=== PATIENT | female | born 1955 | race Caucasian/White ===

== ENCOUNTER 2017-11-29 10:07 | Observation (INO) | payer OTHER ==
[~2017-11-29] VITALS: Ht 157.5 cm; Wt 84.2 kg
[~2017-11-29 10:07] MED LIST: ROSU20TA PO; SYN0.025T PO
[2017-11-29 10:38] LABS: BASOPHILS % (AUTO) 0.5 % (0-1); EOSINOPHILS # (AUTO) 0.1 X10'3 (0-0.9); EOSINOPHILS % (AUTO) 1.1 % (0-6); HEMOGLOBIN 14.1 g/dl (12.0-16.0); LYMPHOCYTES # (AUTO) 2.6 X10'3 (1.1-4.8); LYMPHOCYTES % (AUTO) 31.7 % (21-51); MEAN CORPUSCULAR HEMOGLOBIN 31.1 PG (27.0-31.0); MEAN CORPUSCULAR HGB CONC 34.3 % (33.0-36.5); MEAN CORPUSCULAR VOLUME 90.7 FL (78-98); MEAN PLATELET VOLUME 7.6 FL (7.4-10.4); MONOCYTES # (AUTO) 0.6 X10'3 (0-0.9); MONOCYTES % (AUTO) 7.6 % (2-12); NEUTROPHILS # (AUTO) 4.9 X10'3 (1.8-7.7); NEUTROPHILS % (AUTO) 59.1 % (42-75); PLATELET COUNT 263 X10'3 (140-440); RED BLOOD COUNT 4.52 X10'6 (4.20-5.60); RED CELL DISTRIBUTION WIDTH 13.1 % (11.5-14.5); WHITE BLOOD COUNT 8.3 X10'3 (4.5-11.0)
[2017-11-29 10:48] LABS: INR 0.9 INR; PARTIAL THROMBOPLASTIN TIME 27 SECONDS (22-32); PROTHROMBIN TIME 9.6 SECONDS (9.0-12.0)
[2017-11-29 10:53] LABS: ALANINE AMINOTRANSFERASE 44 U/L (12-78); ALBUMIN 4.1 G/DL (3.4-5.0); ALBUMIN/GLOBULIN RATIO 1.1 (1.1-1.5); ALKALINE PHOSPHATASE 89 IU/L (46-116); ANION GAP 9 (8-16); ASPARTATE AMINO TRANSFERASE 27 U/L (10-37); BILIRUBIN,TOTAL 0.3 MG/DL (0.1-1.0); BLOOD UREA NITROGEN 15 MG/DL (7-18); BUN/CREATININE RATIO 18.1 (6.6-38.0); CALCIUM 9.6 MG/DL (8.5-10.1); CHLORIDE 106 MMOL/L (99-107); CREATININE 0.83 MG/DL (0.40-0.90); GLUCOSE 121 MG/DL (70-104); SODIUM 143 MMOL/L (135-145); TOTAL CARBON DIOXIDE 28.4 MMOL/L (24-32); TOTAL PROTEIN 7.8 G/DL (6.4-8.2); eGFR 70 ML/MIN
[2017-11-29] MEDS ORDERED: nitroGLYCERIN 0.4mg/hour patch TD ONE (11:10)
[2017-11-29 11:29] LABS: URINE AMPHETAMINE SCREEN NEGATIVE (Neg); URINE BARBITUATE SCREEN NEGATIVE (Neg); URINE BENZODIAZEPINES SCREEN NEGATIVE (Neg); URINE CANNABINOID SCREEN NEGATIVE (Neg); URINE COCAINE SCREEN NEGATIVE (Neg); URINE METHADONE SCREEN NEGATIVE (Neg); URINE OPIATE SCREEN NEGATIVE (Neg); URINE PHENCYCLIDINE SCREEN NEGATIVE (Neg)
[2017-11-29] MEDS ORDERED: ondansetron/PF 4mg/2ml inj IV PRN (11:35)
[2017-11-29] MEDS ORDERED: mag hydrox/Alum hydrox/simeth 30ml oral suspension PO PRN (11:35)
[2017-11-29] MEDS ORDERED: acetaminophen 325mg tablet PO PRN (11:35)
[2017-11-29] MEDS ORDERED: magnesium hydroxide 30ml (MOM) UD suspension PO PRN (11:35)
[2017-11-29] MEDS ORDERED: regadenoson 0.4mg/5ml syringe IV ONE (11:40)
[2017-11-29] MEDS ORDERED: nitroGLYCERIN 0.4mg SUBLingual tab SL PRN (11:40)
[2017-11-29] MEDS ORDERED: CAFFEINE CITRATE 60 MG/3 ML injection vial IV PRN (11:40)
[2017-11-29] MEDS ORDERED: metoprolol tartrate 1mg/ml inj IV PRN (11:40)
[2017-11-29 11:41] LABS: ETHANOL < 0.010 GM/DL (0.0-0.010)
[2017-11-29] MEDS: sodium chloride 0.45% 1,000 ML IV SCH ×2 (11:54→15:19)
[2017-11-29 14:45] VITALS: BP 101/89
[2017-11-29] MEDS ORDERED: aspirin 325mg tablet PO ONE (15:55)
[2017-11-29 20:00] VITALS: BP 132/61
[2017-11-30] VITALS (10 sets, daily range): BP systolic 122–153; BP diastolic 64–85
[2017-11-30] MEDS: sodium chloride 0.45% 1,000 ML IV SCH (01:27)
[2017-11-30 05:28] LABS: BASOPHILS % (AUTO) 0.5 % (0-1); EOSINOPHILS # (AUTO) 0.2 X10'3 (0-0.9); EOSINOPHILS % (AUTO) 2.4 % (0-6); HEMATOCRIT 38.2 % (35.0-45.0); HEMOGLOBIN 13.1 g/dl (12.0-16.0); LYMPHOCYTES # (AUTO) 2.9 X10'3 (1.1-4.8); LYMPHOCYTES % (AUTO) 30.3 % (21-51); MEAN CORPUSCULAR HEMOGLOBIN 30.9 PG (27.0-31.0); MEAN CORPUSCULAR HGB CONC 34.1 % (33.0-36.5); MEAN CORPUSCULAR VOLUME 90.3 FL (78-98); MEAN PLATELET VOLUME 8.1 FL (7.4-10.4); MONOCYTES # (AUTO) 0.7 X10'3 (0-0.9); MONOCYTES % (AUTO) 7.4 % (2-12); NEUTROPHILS # (AUTO) 5.6 X10'3 (1.8-7.7); NEUTROPHILS % (AUTO) 59.4 % (42-75); PLATELET COUNT 245 X10'3 (140-440); RED BLOOD COUNT 4.23 X10'6 (4.20-5.60); RED CELL DISTRIBUTION WIDTH 13.2 % (11.5-14.5); WHITE BLOOD COUNT 9.4 X10'3 (4.5-11.0)
[2017-11-30 05:58] LABS: ALANINE AMINOTRANSFERASE 39 U/L (12-78); ALBUMIN 3.4 G/DL (3.4-5.0); ALKALINE PHOSPHATASE 73 IU/L (46-116); ANION GAP 7 (8-16); ASPARTATE AMINO TRANSFERASE 23 U/L (10-37); BILIRUBIN,TOTAL 0.3 MG/DL (0.1-1.0); BLOOD UREA NITROGEN 11 MG/DL (7-18); BUN/CREATININE RATIO 16.7 (6.6-38.0); CHLORIDE 109 MMOL/L (99-107); CREATININE 0.66 MG/DL (0.40-0.90); GLUCOSE 105 MG/DL (70-104); POTASSIUM 4.3 MMOL/L (3.5-5.1); SODIUM 144 MMOL/L (135-145); TOTAL CARBON DIOXIDE 28.2 MMOL/L (24-32); TOTAL PROTEIN 6.9 G/DL (6.4-8.2); eGFR > 90 ML/MIN
[2017-11-30] MEDS ORDERED: BUDE10.2 (06:45)
[2017-11-30] MEDS ORDERED: AZEL6DRO5 (06:45)
[2017-11-30] MEDS ORDERED: atorvastatin 20mg tablet PO SCH (08:00)
[2017-11-30] MEDS ORDERED: levoTHYROXINE 25mcg tablet PO SCH (08:00)
[2017-11-30] MEDS ORDERED: regadenoson 0.4mg/5ml syringe IV ONE (09:43)
[2017-11-30] MEDS ORDERED: CAFFEINE CITRATE 60 MG/3 ML injection vial IV ONE (09:43)
== END 2017-11-30 13:42 | disposition home or self-care (01) ==
LOC: ER 10:08 → ED HOLD 11:35 → SUR 3N 14:41
PROVIDERS: ADMIT Internal Medicine; ATTEND Internal Medicine
DX: R07.89 Other chest pain (principal); E03.9 Hypothyroidism, unspecified; E78.5 Hyperlipidemia, unspecified; E66.01 Morbid (severe) obesity due to excess calories; I10 Essential (primary) hypertension; I20.0 Unstable angina; E78.00 Pure hypercholesterolemia, unspecified; E05.90 Thyrotoxicosis, unspecified without thyrotoxic crisis or storm; Z87.891 Personal history of nicotine dependence
CPT/HCPCS: 36415; 71045; 78451; 80053; 80305; 80320; 83735; 84443; 84484; 85025; 85610; 85730; 87070; 93005; 93017; 96360; 96361; 99285; A9500; G0378; J7030

== ENCOUNTER 2024-12-14 16:48 | Emergency (ER) | payer MEDICARE ==
[~2024-12-14] VITALS: Ht 157.5 cm; Wt 81.8 kg
[~2024-12-14 16:48] MED LIST changes: +AZEL6DRO5; +BUDE10.2; -ROSU20TA PO; +ROSU20TA2 PO
[2024-12-14 16:58] VITALS: BP 188/91; PULSE 74; RESP 16; TEMP 98.4; O2SAT 97
--- NOTE | 2024-12-14 17:03 | Physician Documentation ---
History of Present Illness ~ Chief Complaint: Laceration Stated Complaint: LAC ON RT POINTER FINGER Time Seen by MD: 17:54 OK to notify your PCP?: Yes Primary Medical Doctor: Dr Moeller Source: patient Mode of Arrival: POV Exam Limitations: no limitations HPI 69-year-old female with small laceration to right PIP joint dorsal surface after cutting onions an hour ago. Bleeding controlled with a dressing, no thinners. No decreased range of motion of finger. Tetanus Within 5 Years: No Medication Reconciliation Allergies: Coded Allergies: Penicillins (Verified Allergy, Unknown, 12/14/24) Sulfa (Sulfonamide Antibiotics) (Verified Allergy, Unknown, 12/14/24) Scheduled Levothyroxine Sodium* (Synthroid*), 25 MCG PO DAILY, (Reported) Rosuvastatin Calcium* (Crestor*), 20 MG PO DAILY, (Reported) Miscellaneous Medications Azelastine HCl (Azelastine HCl), (Reported) Budesonide/Formoterol Fumarate (Symbicort 160-4.5 Mcg Inhaler), (Reported) Past Medical History Past Medical History: High Cholesterol, Hyperthyroidism Past Surgical History: no surgical history Alcohol Use: Occasionally Drug Use: none Lives with: Family Lives In: Home Review of Systems All Other Systems at this time: Reviewed and Negative Physical Exam Vital Signs: Temperature: 98.4, Source: Temporal, Heart Rate: 74, Respiratory Rate: 16, BP: 188/91, Pulse Oximetry: 97, Weight: 81.820 Oxygen Flow Rate: 0 Physical Exam General Appearance: Alert, WD/WN. NAD. HEENT: NCAT, PERRL, EOMI. Neck: Supple, trachea midline. Lungs: Breathing unlabored Extremities: Normal inspection. No edema. Skin: Warm/dry, normal color. Right PIP joint dorsal surface very small laceration horizontal about 4 mm in length and very superficial, no bleeding or edema. Neurological: Alert and oriented x4, normal gait. Psychiatric: Affect congruent with mood. Progress Results/Orders Results/Orders Orders - BABAK FIGUEROA General Nursing Order (12/14/24 17:59) Completed Orders - BABAK FIGUEROA Tetanus/Pertuss/Diph Acell/Pf (Boostrix (12/14/24 18:00) Medications Received in ER Medications (Trade) Dose Ordered Sig/Jorge Route PRN Reason Start Time Stop Time Status Last Admin Dose Admin (Boostrix vaccine syringe) 0.5 ml ONCE ONCE IMVAC 12/14/24 18:00 12/14/24 18:01 DC 12/14/24 18:22 0.5 ML Vital Signs 12/14/24 16:58 Temp 98.4 Pulse 74 Resp 16 B/P (MAP) 188/91 Pulse Ox 97 O2 Flow Rate 0 Medical Decision Making Differential Dx:Considerations: Include: Abrasion, Avulsion, Contusion, Laceration, Fracture, Hematoma, Neurovascular injury, Retained foreign body Departure Time of Disposition: 18:17 Disposition: 01 HOME / SELF CARE / HOMELESS Impression: Primary Impression: Laceration Condition: Stable Discharge Instructions: Laceration Care, Adult, [id number] Additional Instructions: DO NOT GET WET X 72HOURS KEEP IN SPLINT UNTIL HEALED Referrals: NO PRIMARY CARE PROVIDER (PCP) Education Educated: Patient Educated regarding: diagnosis, treatment, need for follow up Additional Comment Medical Screen Exam This patient recieved a medical screening examination. After reviewing the individual's medical complaints with presenting symptoms and performing an appropriate physical examination, it was determined that no emergency medical condition is present. This individual is also not a women having contractions. Signature Scribe Signature: x Attestation: CHRIS Choudhury Dec 14, 2024 17:03 BABAK FIGUEROA Dec 14, 2024 18:17
[2024-12-14] MEDS: TETanus/Pertussis (Acell)/Diphther VAC/PF (Tdap-Adult) 0.5ml syringe IMVAC ONE (18:22)
== END 2024-12-14 18:31 | disposition home or self-care (01) ==
LOC: ER 16:48
DX: S61.210A Laceration without foreign body of right index finger without damage to nail, initial encounter (principal); E78.00 Pure hypercholesterolemia, unspecified; E05.90 Thyrotoxicosis, unspecified without thyrotoxic crisis or storm; Z88.0 Allergy status to penicillin; Z88.2 Allergy status to sulfonamides; Z79.899 Other long term (current) drug therapy; Z72.89 Other problems related to lifestyle; W26.0XXA Contact with knife, initial encounter; Y93.89 Activity, other specified; Y92.89 Other specified places as the place of occurrence of the external cause; Y99.8 Other external cause status
CPT/HCPCS: 29130; 90715; 99283; G0008; J7030; 90471

== ENCOUNTER 2025-06-12 00:08 | Inpatient (IN) | payer MEDICARE ==
[~2025-06-12] VITALS: Ht 157.5 cm; Wt 81.8 kg
--- NOTE | 2025-06-12 00:21 | ELECTROCARDIOGRAPH REPORT ---
[facility] Test Date: 2025-06-12 Test Time: 00:16:41 Pat Name: KIMANI GALLOWAY Department: EMERGENCY ROOM Room: ORTHO 4009 Gender: F Cafeteria Attendant: LUÍS : 1955 Requested By: J LUIS MEHTA Order Number: [id number] Reading MD: Dr. ELVIA Stewart Measurements Intervals [place] Rate: 79 P: 78 OR: 177 QRS: 63 QRSD: 79 T: 38 QT: 382 QTc: 438 Interpretive Statements Sinus rhythm Anteroseptal infarct, old Electronically Signed On 06-13-2025 16:52:[address] ELVIA Stewart Please click the below link to view image of tracing.
--- NOTE | 2025-06-12 01:16 | RADIOLOGY REPORT ---
EXAM: DI CHEST,SINGLE VIEW TECHNIQUE: Single frontal chest radiograph CLINICAL HISTORY: CP COMPARISON: None FINDINGS/IMPRESSION: Mild prominence of the interstitial markings. The cardiomediastinal silhouette is unremarkable. No pleural effusion or pneumothorax. No acute osseous abnormality.
[2025-06-12 01:23] LABS: CREATININE 0.85 MG/DL (0.40-0.90); PRO BRAIN NATRIURETIC PEPTIDE 47 PG/ML (0-125); TOTAL CARBON DIOXIDE 28.0 MMOL/L (24-32); eGFR 66 ML/MIN
--- NOTE | 2025-06-12 01:23 | Physician Documentation ---
History of Present Illness ~ Chief Complaint: Hypertension Stated Complaint: CHEST PAIN Time Seen by MD: 01:03 Primary Medical Doctor: Dr Moeller [facility] Patient presents to the emergency room for evaluation of chest pain and blood pressure. Patient has been working with her doctor regarding her blood pressures for some time now. A proximally a week ago patient has started small dose of metoprolol and she states she has not really felt in his affect. Regarding her recent blood pressures she did bring a log with her which shows that her blood pressures typically range between 130 and 150 however today there has been over 200. She also endorses increasing left-sided chest pain that radiates into her left jaw over the past few weeks. She does not smoke but does have history of blood pressure cholesterol diabetes and family history. Denies one-sided leg pain Medication Reconciliation Allergies: Coded Allergies: Penicillins (Verified Allergy, Unknown, 06/12/25) Sulfa (Sulfonamide Antibiotics) (Verified Allergy, Unknown, 06/12/25) metformin (Verified Allergy, Unknown, 06/12/25) Scheduled Levothyroxine Sodium (Synthroid), 1 TAB PO DAILY, (Reported) Levothyroxine Sodium* (Synthroid*), 25 MCG PO DAILY, (Reported) Losartan/Hydrochlorothiazide (Losartan-Hctz 100-12.5 Mg Tab), 1 TAB PO DAILY, (Reported) Metoprolol Succinate (Metoprolol Succinate), 1 TAB PO DAILY, (Reported) Pioglitazone Hcl (Pioglitazone Hcl), 1 TAB PO DAILY, (Reported) Rosuvastatin Calcium* (Crestor*), 20 MG PO DAILY, (Reported) Scheduled PRN Albuterol Sulfate (Ventolin Hfa), 2 PUFF PO Q6H PRN for SOB or wheezing, (Reported) Miscellaneous Medications Azelastine HCl (Azelastine HCl), (Reported) Budesonide/Formoterol Fumarate (Symbicort 160-4.5 Mcg Inhaler), (Reported) Past Medical History Past Medical History: High Cholesterol, Hyperthyroidism Past Surgical History: no surgical history Alcohol Use: Occasionally Drug Use: none Lives with: Family Lives In: Home Review of Systems ROS All review of systems negative except as per HPI Physical Exam Vital Signs: Temperature: 97.6, Source: Temporal, Heart Rate: 84, Respiratory Rate: 15, BP: 214/105, Pulse Oximetry: 99 Physical Exam General: Patient is awake, alert, oriented x4 in no acute distress Head: Normocephalic and atraumatic. Eyes: Conjunctival normal. EOMI. PERRL. ENT: Mucous membranes moist. Neck: Supple, trachea is midline. Chest: Clear to auscultation bilaterally without rales, rhonchi, or wheezes. There is no accessory muscle use or retractions. Cardiac: RRR without murmurs, gallops, or rubs. Abd: Soft, nondistended, nontender, with normoactive bowel sounds. No guarding, rebound, or rigidity. Progress Results/Orders Results/Orders Orders - DOM MEHTA MD Chest,Single View (06/12/25 00:54) Monitor (06/12/25 00:19) Saline Lock (06/12/25 00:19) Oxygen (06/12/25 00:19) Cbc/Diff (06/12/25 00:19) Hs Troponin I W Calculations (06/12/25 02:19) Hs Troponin I W Calculations (06/12/25 03:19) Page Hospitalist (06/12/25 01:26) Fill Out Med Reconciliation (06/12/25 01:26) Completed Orders - DOM MEHTA MD Chest,Single View (06/12/25 00:54) BMP (06/12/25 00:19) PBNP (06/12/25 00:19) Electrocardiogram (06/12/25 00:19) Hs Troponin I W Calculations (06/12/25 00:19) Aspirin 325mg Tablet (Aspirin 325mg Tabl (06/12/25:25) Acetaminophen 325mg Tablet (Tylenol Tabl (06/12/25:25) Ondansetron Disint. Tablet (Zofran Odt T (06/12/25:25) Famotidine/Pf Iv Inj (Pepcid Iv Inj) (06/12/25:25) Hydralazine Inj. (Apresoline Inj.) (06/12/25:25) Vital Signs 06/12/25 06/12/25 06/12/25 00:17 01:29 01:30 Temp 97.6 Pulse 84 82 Resp 15 16 16 B/P (MAP) 214/105 181/88 (119) Pulse Ox 99 99 Laboratory Tests Test 06/12/25 00:49 CBC Comment Sodium Level 137 Potassium Level 3.7 Chloride Level 100 Carbon Dioxide Level 28.0 Anion Gap 9 Blood Urea Nitrogen 18 Creatinine 0.85 Estimated GFR/1.73 m2 66 BUN/Creatinine Ratio 21.2 H Glucose Level 172 H Calcium Level 9.1 Troponin I High Sensitivity 6 Pro-B-Type Natriuretic Peptide 47 Albumin 4.2 Chemistry Comments EKG/XRAY/CT/US/VASC/MRI EKG : Additional Comment EKG interpreted by myself shows time of 0016, rate 79, sinus rhythm, normal axis, no ST changes Chest X-Ray : Additional Comments Exam: CHEST,SINGLE VIEW EXAM: DI CHEST,SINGLE VIEW TECHNIQUE: Single frontal chest radiograph CLINICAL HISTORY: CP COMPARISON: None FINDINGS/IMPRESSION: Mild prominence of the interstitial markings. The cardiomediastinal silhouette is unremarkable. No pleural effusion or pneumothorax. No acute osseous abnormality. Medical Decision Making Additional information obtaine: old records Findings Patient presents to the emergency room with blood pressure and chest pain. Differentials include but are not limited to hypertensive emergency, ACS, angina, unstable angina, musculoskeletal pain, pulmonary embolism, aortic pathology therefore emergent labs and imaging indicated. No back pain reported with equal radial pulses and he had not feel patient is suffering from acute aortic pathology. Patient's chest pain has been intermittent left-sided radiating into her neck which is of concern. Patient was history of blood pressure cholesterol diabetes that has well as family history in his considered high risk and we will admit for further investigation of her chest pain. Patient's blood pressure improving spontaneously. We will give a small amount of hydralazine to decrease her blood pressure and I feel this will lift some of her anxiety in her blood pressure will improve greatly. She has brought a blood pressure log with her that shows her blood pressures ranging from the 120s to 150s as early as yesterday. Differential Dx:Considerations: Include CHF, Include HTN, essential, Include HTN, accelerated, Include HTN, malignant, Include HTN, encephalopathy, Include medical noncompliance, Include medication withdrawal, Include pulmonary edema, Include renal failure, Include -induced, Include other Departure Admitted to Inpatient Unit: yes, to hospitalist Impression: Primary Impression: Uncontrolled hypertension Additional Impression: Chest pain Condition: Guarded Referrals: NO PRIMARY CARE PROVIDER (PCP) Signature Scribe Signature: No scribe Attestation: The note accurately reflects work and decisions made by me.Dom Mehta MD 06/12/25 01:46 DOM MEHTA MD Jun 12, 2025 01:23
[2025-06-12] MEDS ORDERED: METO-395 PO (01:29)
[2025-06-12] MEDS ORDERED: LEVO50TA PO (01:29)
[2025-06-12] MEDS ORDERED: PIOG30TA71 PO (01:29)
[2025-06-12] MEDS ORDERED: LOSA1TAB41 PO (01:29)
[2025-06-12] MEDS ORDERED: ALBU18HF2 PO (01:29)
[2025-06-12] MEDS: ondansetron 4mg rapidly disintigrating tab PO ONE (01:44)
[2025-06-12 01:51] LABS: MEAN PLATELET VOLUME 7.6 FL (7.4-10.4); RED CELL DISTRIBUTION WIDTH 12.5 % (11.5-14.5)
[2025-06-12] MEDS ORDERED: ondansetron/PF 4mg/2ml inj IV PRN (02:05)
[2025-06-12] MEDS ORDERED: mag hydrox/Alum hydrox/simeth 30ml oral suspension PO PRN (02:05)
[2025-06-12] MEDS ORDERED: magnesium Cl slow-release 64mg tablet PO PRN (02:05)
[2025-06-12] MEDS ORDERED: potassium Cl 40MEQ/1/2NS 520ml 520 ML IV PRN (02:05)
[2025-06-12] MEDS ORDERED: potassium Cl 20 mEq SR tablet PO PRN ×2 (02:05)
[2025-06-12] MEDS ORDERED: magnesium sulf-water 4G/100mL 100 ML IV PRN (02:05)
[2025-06-12] MEDS ORDERED: magnesium hydroxide 30ml (MOM) UD suspension PO PRN (02:05)
[2025-06-12] MEDS ORDERED: magnesium sulf-water 2g/50mL 50 ML IV PRN (02:05)
[2025-06-12] MEDS: famotidine/PF 10 mg/ml inj IV ONE (02:12)
[2025-06-12] MEDS: hydrALAZINE 20mg/ml inj. IV ONE (02:12)
[2025-06-12 02:36] LABS: APTT 28 SECONDS (22-32); INR 0.9 INR
[2025-06-12 02:55] LABS: URINE AMPHETAMINE SCREEN NEGATIVE (Neg); URINE BARBITUATE SCREEN NEGATIVE (Neg); URINE BENZODIAZEPINES SCREEN NEGATIVE (Neg); URINE CANNABINOID SCREEN NEGATIVE (Neg); URINE COCAINE SCREEN NEGATIVE (Neg); URINE METHADONE SCREEN NEGATIVE (Neg); URINE OPIATE SCREEN NEGATIVE (Neg); URINE PHENCYCLIDINE SCREEN NEGATIVE (Neg)
[2025-06-12 03:03] LABS: PHOSPHORUS 4.1 MG/DL (2.3-4.5)
--- NOTE | 2025-06-12 03:03 | HISTORY AND PHYSICAL-Residence ---
History & Physical Providers to CC Resident Creating Document: ZEHRA ARREDONDO ROMULO, RES ~ History of Present Illness Primary Medical Doctor: Dr. Nate Asencio, [facility] Reason for Admit\Complaint: Chest pain History of Present Illness A 70 years old female with history of hypertension, diabetes, hyperlipidemia, hypothyroidism came to the ED with chief complaint of chest pain. Patient states that she was doing well, had a dinner and went to bed for sleep, after sometime, she has having chest pain all over the chest region which is dull aching, with intensity of 7/10, radiating to left side of the jaw, upper abdomen and to the lower back region. She did not take any medication at home and she was brought to the hospital by her . Patient has history of occasional pain in upper abdomen and she underwent ultrasound abdomen on 06/10/25 in view of suspicion of gallbladder and she did not get the report yet. Patient has similar kind of episode in the past x 7-8 yrs ago underwent stress test which was negative. Patient denies any difficulty in breathing, palpitations, orthopnea, PND, swelling of legs, lightheadedness, syncope, falls, nausea, vomiting, diarrhea, constipation, fever and chills. Allergies: Coded Allergies: Penicillins (Verified Allergy, Unknown, 06/12/25) Sulfa (Sulfonamide Antibiotics) (Verified Allergy, Unknown, 06/12/25) metformin (Verified Allergy, Unknown, 06/12/25) Home Medications Home Medications Active Reported Pioglitazone Hcl 30 Mg Tablet 1 Tab PO DAILY Synthroid (Levothyroxine Sodium) 50 Mcg Tablet 1 Tab PO DAILY Ventolin Hfa (Albuterol Sulfate) 90 Mcg Hfa.aer.ad 2 Puff PO Q6H PRN Losartan-Hctz 100-12.5 Mg Tab (Losartan/Hydrochlorothiazide) 100 Mg-12.5 Mg Tablet 1 Tab PO DAILY Metoprolol Succinate 25 Mg Tab.sr.24h 1 Tab PO DAILY Symbicort 160-4.5 Mcg Inhaler (Budesonide/Formoterol Fumarate) 10.2 Gm Hfa.aer.ad Azelastine HCl 6 Ml Drops Crestor* (Rosuvastatin Calcium) 20 Mg Tablet 20 Mg PO DAILY Synthroid* (Levothyroxine Sodium) 25 Mcg Tablet 25 Mcg PO DAILY Past Medical History Past Medical History Hypertension Type 2 diabetes mellitus Hypothyroidism Hyperlipidemia Past Surgical History Surgical History Comment Hysterectomy Carpal tunnel release on both sides Family history: History of cardiovascular disease in the family Past Social History Social History Comment Alcohol: She drinks occasionally like once in EMR Smoking: She quit smoking 10 years ago, currently do sometimes nicotine lozenges . previously she used to smoked about 1 pack of cigarettes per day if teenage. Drugs: Denies any recreational drug use Independent of activities of daily living Lives with at home Retired Smoking: Non-Smoker Alcohol Use: Occasionally Drug Use: None Lives with: Family Lives In: Home ROS ROS Constitutional: No fever, chills, dizziness, weight gain or loss, night sweats Eyes: No pain, erythema, discharge, blurring of vision ENT: No sore throat, epistaxis, tinnitus Cardiovascular: Reports chest pain, no palpitations, syncope, lower extremity edema, paroxysmal nocturnal dyspnea Respiratory: No Shortness of breath and cough, No hemoptysis. Gastrointestinal: Reports mild Abdominal pain, no vomiting,nausea and melena. Normal appetite. No constipation,diarrhea, hematemesis, Musculoskeletal: No swelling or edema of extremities. Integumentary: No change in skin, hair, nails. No swelling, bruising, abrasions Neurologic: No weakness,No headache, neck pain, numbness or tingling of the extremities, Psychiatric: No delusions, depression, loss of interest in normal activity or change in sleep pattern, hallucinations, suicidal ideations Endocrine: No fatigue, no weakness. polydipsia, polyuria, change in appetite, heat or cold intolerance, sweating, dry skin Hematological: No bleeding, petechiae, bruising Allergies: No asthma or urticaria Exam Vitals: Vital Signs Date Time Temp Pulse Resp B/P (MAP) Pulse Ox O2 Delivery O2 Flow Rate FiO2 06/12/25 02:20 84 18 105/84 (91) 98 0 06/12/25 00:17 97.6 General: Awake , alert and oriented to time,place, person, not in distress HEENT: Atraumatic, normocephalic, PERRLA, EOMI, anicteric sclera ; pink conjunctiva, moist mucos membranes Neck: Trachea midline. Supple, normal range of motion, no JVD, no lymphadenopathy Chest and Respiratory: Equal breath sounds bilaterally, no tachypnea, wheezing, ronchi,rubs .Chest wall is symmetric and without deformity. Cardiac: S1, S2 heard,Regular rate and rhythm, grade 2 +/6+ systolic ejection murmur over RUSB ,no gallops, no rubs. Abdomen: Soft, No tenderness, No guarding or rigidity, Barnhart's sign negative. normal bowel sounds x4 quadrant, no hepatosplenomegaly MSK: Range of motion of all extremities are normal. There is no joint pain or joint swelling or joint erythema. There is no muscle pain or tenderness or swelling. Extremities: warm, well-perfused, No cyanosis, clubbing, 2+ pulses felt Neurological: Mental status exam: alert and consciousness, orientation, memory, speech - Cranial nerve test: Cranial nerves II-XII intact. - Motor system: Normal Nutrition, normal tone, Power 5/5, no involuntary movements - Sensory system: Intact - Reflex testing: Biceps, triceps and knee reflexes 2+ - Cerebellar: Normal Skin: Warm and dry Psychiatry: Affect and mood are normal Diagnostic Data Last Recorded Lab Results: 06/12/25 0537 06/12/25 0049 Diagnostic Data: Laboratory Tests Test 06/12/25 00:49 Prothrombin Time 9.7 SECONDS (9.0-12.0) INR International Normalized Ratio 0.9 INR Activated Partial Thromboplast Time 28 SECONDS (22-32) Coagulation Comments Advance Care Planning Advanced Care plannin - 30 Minutes Additional Plan Rule out ACS likely NSTEMI 2/2 Hypertensive urgency -Blood pressure on admission is 214/105 , patient received 1 dose of IV hydralazine 10 mg and IV famotidine 20 mg, developed itching and mild rash, IV Benadryl was given. -EKG shows normal sinus rhythm with heart rate of 84 -Serial troponins are 6-38-71 -Patient states that she was diagnosed with hypertension x 1 year ago and she was on losartan which does not improve her blood pressure and the PCP changed it to metoprolol succinate 25 mg p.o. daily 2 weeks ago. -blood pressures at home from last 2 weeks are in between 140/4 to 168/95 -follow up on echocardiogram -pain management with morphine and SL nitroglycerin p.r.n. -continue home medication metoprolol succinate 25 mg p.o. daily(titrate as needed) -aspirin 325 mg once dose was given and started on aspirin 81 mg once daily, atorvastatin 80 mg once daily -started on heparin drip as per protocol -Follow up troponin trend, consult cardiology in the morning Type 2 diabetes mellitus, NIDDM Patient states that she was diagnosed with DM x 1 year ago and she was on Metformin which does not improve her blood suagrs and the PCP changed it to pioglitazone 30 mg daily 2 weeks ago, patient did not start on pioglitazone yet. Blood glucose level is 172 HbA1c level is 7.4 Started on Lantus 10 units HS daily Hyperglycemia/hypoglycemia protocol Suspicion of cholelithiasis AST, ALT are normal, mildly elevated ALP of 119 Lipase is normal Follow up on ultrasound abdomen Hyperlipidemia Follow up on lipid panel Continue home medication rosuvastatin 20 mg p.o. daily Hypothyroidism Follow up on TSH Continue home medication levothyroxine 50 mcg p.o. daily Code status: Full code DVT prophylaxis : Heparin GI prophylaxis: IV Protonix Nutrition: Heart healthy diet Physical therapy: ordered Line/tube: PIV Analgesia/sedation: Morphine Disposition: Continue telemetry monitoring, management of hypertensive urgency and NSTEMI and -Follow up troponin trend, consult cardiology in the morning Resident attestation The above note has been reviewed and supervised by a senior resident PGY2/PGY3 Patient was seen, examined and discussed with the attending physician Jian Arredondo MD Internal Medicine Resident, PGY 1 Addendum I personally reviewed the chart, labs and imaging and reviewed the patient with the team. I agree with the assessment and plan as documented by the resident. Patient was seen through remote audio-visual assessment through HIPAA compliance setup. Date of Service: Jun 12, 2025 Billing Provider: BETHEL BUCKLEY MD, SUNIL KUMAR, RES Jun 12, 2025 03:03 BETHEL BUCKLEY MD Jun 12, 2025 06:38
[2025-06-12] MEDS ORDERED: dextrose 50%-water 50ml dispensing syringe IV PRN ×2 (03:40)
[2025-06-12] MEDS ORDERED: DEXTROSE 15 GM of carb/4 tabs (each vial/BOTTLE has 4 tablets) PO PRN ×2 (03:40)
[2025-06-12] MEDS ORDERED: glucagon, human recombinant 1mg kit SUBCUT PRN (03:40)
[2025-06-12] MEDS ORDERED: heparin 10,000 units/1 ML INJ IV PRN (04:45)
[2025-06-12] MEDS: heparin 25,000 UNIT/250ml bag 250 ML IV PRN (05:11)
[2025-06-12] MEDS: heparin 10,000 units/1 ML INJ IV ONE (05:15)
[2025-06-12] MEDS: aspirin 325mg tablet, delayed-release (Ecotrin) PO ONE (05:18)
[2025-06-12] MEDS: MESSAGE TO NURSING IV ONE ×3 (05:20→22:23)
[2025-06-12 05:55] VITALS: BP 98/47; PULSE 85; RESP 17; TEMP 98.4; O2SAT 96
[2025-06-12 06:12] VITALS: BP 104/47; PULSE 79; RESP 14; TEMP 97.4; O2SAT 95
[2025-06-12 06:12] LABS: MEAN PLATELET VOLUME 7.7 FL (7.4-10.4); RED CELL DISTRIBUTION WIDTH 12.4 % (11.5-14.5)
[2025-06-12] MEDS: K and/or MAG REPLACEMENT MC SCH (07:11)
[2025-06-12] MEDS: INSULIN LISPRO 100 UNIT/ML INSULN.PEN MULTI-DOSE SQ SCH (07:25)
[2025-06-12] MEDS: levoTHYROXINE 25mcg tablet PO SCH (07:30)
[2025-06-12] MEDS: docusate sod 100mg capsule PO SCH (07:30)
[2025-06-12] MEDS: nicotine 14mg patch - 24hr TD SCH (07:33)
[2025-06-12] MEDS ORDERED: heparin, porcine 5000 units/ml vial SQ SCH (08:00)
--- NOTE | 2025-06-12 08:29 | RADIOLOGY REPORT ---
INDICATION: abd pain, gall stones, kidney stones TECHNIQUE: Multiple real-time sonographic images of the abdomen and urinary bladder were obtained. COMPARISON: None FINDINGS: The liver is increased in echogenicity. The liver measures 17.2 cm. No intrahepatic biliary ductal dilatation is noted. Hepatopetal flow in the main portal vein. The gallbladder wall measures 0.2 cm and is unremarkable. No gallstones or sludge is seen. The common duct measures 0.2 cm and is unremarkable. No pericholecystic fluid is noted. Negative sonographic banks's sign. The right kidney measures 10.9 cm. There is right hydronephrosis. The left kidney measures 12.2 cm. No hydronephrosis. The spleen measures 9.3 cm, within normal limits. The echogenicity is within normal limits. The pancreas is not well visualized due to obscuration from bowel gas. The visualized portions of the IVC and aorta are grossly unremarkable. No ascites. No pleural effusion. Prevoid urinary bladder volume measures 89.6 cc. Postvoid residual bladder is 0. No Bladder wall thickening. IMPRESSION: 1. Right hydronephrosis. No obstructing stone. 2. Hepatic steatosis. 3. No gallstones or acute cholecystitis.
[2025-06-12 10:00] VITALS: BP 120/50; PULSE 77; RESP 17; TEMP 97.7; O2SAT 95
[2025-06-12] MEDS: metoprolol succinate 25mg (24-HOUR) SR. Tablet PO SCH (10:54)
[2025-06-12] MEDS ORDERED: albuterol 2.5 MG/3 ML nebule NEB PRN (15:40)
[2025-06-12] MEDS ORDERED: aminophylline 250mg/10ml inj. IV PRN (16:40)
[2025-06-12] MEDS ORDERED: metoprolol tartrate 1mg/ml inj IV PRN (16:40)
--- NOTE | 2025-06-12 16:45 | CONSULTATION REPORT ---
History of Present Illness Providers to CC CC: ZAYRA ZAPATA MD ~ Reason for Admit\Admit Dx: Cardiology consultation Refering MD: Dr. Nate Asencio, [facility] History of Present Illness Patient with history of hypertension, hyperlipidemia, hypothyroidism, diabetes mellitus presented secondary to chest pain and elevated blood pressure. Systolic blood pressure initially over 200. Chest pain was across the chest and into her left jaw. Described as pressure and sharp. Had difficulty breathing and pain with inspiration. No nausea, vomiting. No palpitations. No diaphoresis. States that she continues to have chest pressure but it has significantly improved. Her blood pressure has been elevated. She is attempting to adjust her blood pressure medications with her primary care provider. She was initially placed on losartan. She stated she had ringing in her ears and confusion. This medication was then increased and she was also started on hydrochlorothiazide. States her confusion worsened. She was therefore taken off of these medications and she was started on metoprolol. Unfortunately, her blood pressure remains uncontrolled. Allergies: Coded Allergies: hydralazine (Verified Allergy, Intermediate, 06/12/25) face flush and itchy around her lips, bloatchiness around her face Penicillins (Verified Allergy, Unknown, 06/12/25) Sulfa (Sulfonamide Antibiotics) (Verified Allergy, Unknown, 06/12/25) metformin (Verified Allergy, Unknown, 06/12/25) losartan (Verified Adverse Reaction, Intermediate, 06/12/25) pt states, burning and itching with losartan and hydroicholidized Home Medications Home Medications Active Reported Pioglitazone Hcl 30 Mg Tablet 1 Tab PO DAILY Synthroid (Levothyroxine Sodium) 50 Mcg Tablet 1 Tab PO DAILY Ventolin Hfa (Albuterol Sulfate) 90 Mcg Hfa.aer.ad 2 Puff PO Q6H PRN Metoprolol Succinate 25 Mg Tab.sr.24h 1 Tab PO DAILY Symbicort 160-4.5 Mcg Inhaler (Budesonide/Formoterol Fumarate) 10.2 Gm Hfa.aer.ad Azelastine HCl 6 Ml Drops Crestor* (Rosuvastatin Calcium) 20 Mg Tablet 20 Mg PO DAILY Synthroid* (Levothyroxine Sodium) 25 Mcg Tablet 25 Mcg PO DAILY Past Medical History Medical History Comment Hypertension Hyperlipidemia Hypothyroidism Diabetes mellitus with hemoglobin A1c 7.4 Past Surgical History Surgical History Comment Bilateral carpal tunnel Hysterectomy Past Social History Social History Comment History of smoking. Continues to use nicotine products intermittently. Physical Exam Last Vital Signs Recorded: RN Vital Signs have been reviewed: Yes, Temperature: 97.7, Source: Oral, Heart Rate: 77, Respiratory Rate: 17, BP: 120/50, Pulse Oximetry: 95, Weight: 81.820 Physical Exam General: Awake, alert, oriented. No apparent distress Neck: Supple. Normal range of motion. No JVD Respiratory: Lungs are clear to auscultation bilaterally. No respiratory distress. Chest: Normal shape and size. No accessory muscle use. Cardiovascular: Regular rate and rhythm. S1-S2. No murmur, gallop, rub. Extremities: No lower extremity edema, cyanosis or clubbing. Neurologic: Alert and oriented x4. Nonfocal Psychiatric: Normal mood and affect. Skin: Normal color. Warm and dry. Review of Systems ROS Review of systems negative except documented in HPI. Results EKG EKG Sinus rhythm with nonspecific ST-T changes Echocardiogram Echocardiogram Preserved LVEF. No wall motion abnormalities by preliminary echocardiogram. Diagram Lab Result Diagram: 06/12/25 0537 06/12/25 0049 Assessment/Plan Additional Plan Patient presented secondary to chest pain and elevated blood pressure. The following is her problem list: Hypertensive urgency Blood pressure under much better control. --she was treated with IV hydralazine this morning. Blood pressure is currently controlled. Would consider addition of amlodipine. Chest pain Very minimally elevated troponins. Likely demand ischemia secondary to hypertensive urgency as noted above. However, patient continues to have chest pressure. Therefore I recommend a stress test. Diabetes mellitus with hemoglobin A1c 7.4 --management per hospitalist Case discussed with Dr. Killian Zapata who is in agreement with this plan. Supervising MD Supervising Physician: JOSSELINE Carrillo NP Jun 12, 2025 16:45
[2025-06-12] MEDS: CefTRIAXone 2gm/D5W 50ml BAG 50 ML IV ONE (16:50)
--- NOTE | 2025-06-12 17:04 | CARDIOLOGY REPORT ---
APPROVED REPORT EXAM: Comprehensive 2D, Doppler, and color-flow Echocardiogram. Patient Location: [address] Blood Pressure: 120/50 mmHg Heart Rate: 67 bpm Rhythm: SINUS Indications HYPERTENSION CHEST PAIN TROPONIN 38, 71, 97, 78, 71 Telehealth Nurse: none Previous echo: none 2D Dimensions RVDd 3.1 cm LA Diam 5.4 cm LVOT Diameter 1.94 (1.8-2.4cm) FS (%) 37.3 % SV 38.6 ml CO 4.9 L/min M-Mode Dimensions Left Atrium(MM) 3.30 (2.5-4.0cm) IVSd 1.03 (0.7-1.1cm) LVDd 4.45 (4.0-5.6cm) Aortic Root 2.27 (2.2-3.7cm) PWd 0.78 (0.7-1.1cm) Aortic Cusp Exc 1.48 (1.5-2.0cm) IVSs 1.44 cm LVDs 2.47 (2.0-3.8cm) FS (%) 44 % PWs 1.69 cm ESV(Teich) 21.7 ml LVEF(%) 70 (>50%) Biplane 2D LA Volumes LA ESV Index 19.44 mL/m2 Aortic Valve AoV Peak Arthur. 212.4 cm/s AoV VTI 40.1 cm AO Peak GR. 18.0 mmHg AO Mean GR. 10 mmHg LVOT VTI 30.54 cm LVOT Peak Arthur. 144.0 cm/s SUMAN(VTI)/BSA 2.26 cm2/m2 SUMAN (VTI) 2.26 cm2 AV DI 0.76 % Mitral Valve MV E Velocity 98.1 cm/s MV Peak Gr. 5 mmHg MV DECEL TIME 204 ms MV A Velocity 82.6 cm/s MV PHT 64 ms E/A Ratio 1.2 MVA (PHT) 3.44 cm2 MV VMax 117.2 cm/s TDI Medial E' P. V 15.32 cm/s E/Medial E' 6.4 Pulmonary Vein S1 Velocity 52.0 cm/s D2 Velocity 42.2 cm/s PVa Velocity 34.6 cm/s PVa Duration 116 msec LEFT VENTRICLE Normal LV size and wall thickness. Overall systolic function is normal. Overall LVEF is 65-70%. RIGHT VENTRICLE RV is normal size and function. ATRIA LA size is normal. RA size is normal. AORTIC VALVE Trileaflet AV appears mildly sclerotic without stenosis or insufficiency by color and spectral flow Doppler. MITRAL VALVE Mild MV annular calcification without stenosis. Mild regurgitation by color and spectral flow Doppler. TRICUSPID VALVE TV appears structurally normal with trace regurgitation by color and spectral flow Doppler. PULMONIC VALVE Normal PV without stenosis, physiologic insufficiency by color and spectral flow Doppler. GREAT VESSELS Aortic root is normal in size. PERICARDIUM Normal pericardium. No effusion. Other Information Study Quality: Adequate Conclusion Overall LVEF is 65-70%. Normal LV size and wall thickness. Overall systolic function is normal. RV is normal size and function. Trileaflet AV appears mildly sclerotic without stenosis or insufficiency by color and spectral flow Doppler. Mild MV annular calcification without stenosis. Mild regurgitation by color and spectral flow Doppler. TV appears structurally normal with trace regurgitation by color and spectral flow Doppler. Normal PV without stenosis, physiologic insufficiency by color and spectral flow Doppler. Normal pericardium. No effusion.
[2025-06-12 18:00] VITALS: BP 120/69; PULSE 66; RESP 20; TEMP 97.7; O2SAT 94
--- NOTE | 2025-06-12 18:36 | PROGRESS NOTE ---
Daily Progress Note Providers to CC ~ Antibiotic Timeout Antibiotic Ordered?: Yes Subjective Patient was seen in her room in presence of her . Patient's blood pressure was quite high but when I evaluated the patient it is borderline blood pressure we will hold any antihypertensive at this point of time and re-evaluate patient in a.m.. Patient is not on losartan/hydrochlorothiazide and taking metoprolol for blood pressure control as per her PCP recommendation. As multiple drug allergies. Cardiology team evaluated the patient and recommended stress test. Objective Vital Signs Date Time Temp Pulse Resp B/P (MAP) Pulse Ox O2 Delivery O2 Flow Rate FiO2 06/12/25 16:12 87 06/12/25 10:00 97.7 17 120/50 (73) 95 Room Air 06/12/25 07:30 0.0 Result Diagram: 06/12/25 0537 06/12/25 0049 General-patient not in any acute distress, alert awake oriented, obese, age appropriate HEENT-atraumatic normocephalic, neck supple without elevated JVD, no thyromegaly or carotid bruit. No lymphadenopathy bilaterally. Eyes-no icterus or pallor seen in eyes Chest-clear to auscultation bilaterally, breathing nonlabored no tachypnea, no wheezing, no crepitation, no crackles. Heart-S1-S2 normal, regular heart rate no murmur Abdomen bowel sounds positive on auscultation, soft nondistended nontender no guarding, no rigidity Skin no active skin rash Neurology-grossly intact, nonfocal alert awake oriented Extremity- no pedal edema able to move all 4 extremities Psychiatry - patient is not confused or agitated cooperated during physical examination Coagulation Studies Laboratory Tests Test 06/12/25 00:49 06/12/25 11:43 Prothrombin Time 9.7 SECONDS (9.0-12.0) INR International Normalized Ratio 0.9 INR Activated Partial Thromboplast Time 28 SECONDS (22-32) APTT (Heparin Protocol) 56 SECONDS (45-60) Coagulation Comments Problem\Assessment\Plan Elevated troponin likely type 2 HI Hypertensive urgency -Blood pressure on admission is 214/105 , patient received 1 dose of IV hydralazine 10 mg and IV famotidine 20 mg, developed itching and mild rash, IV Benadryl was given. -EKG shows normal sinus rhythm with heart rate of 84 -Serial troponins are 6-38-71 -Patient states that she was diagnosed with hypertension x 1 year ago and she was on losartan which does not improve her blood pressure and the PCP changed it to metoprolol succinate 25 mg p.o. daily 2 weeks ago. -blood pressures at home from last 2 weeks are in between 140/4 to 168/95 -echocardiogram today left ventricular ejection fraction 65-70% overall systolic function is normal. Normal left ventricular size and wall thickness. -pain management with morphine and SL nitroglycerin p.r.n. -continue home medication metoprolol succinate 25 mg p.o. daily(titrate as needed) -aspirin 325 mg once dose was given and started on aspirin 81 mg once daily, atorvastatin 80 mg once daily - on heparin drip as per protocol Cardiology consultation done by Cardiology team for Dr. Long Zapata recommended stress testing. We will follow results of stress testing in AM Type 2 diabetes mellitus, NIDDM Patient stated that she was diagnosed with DM x 1 year ago and she was on Metformin which does not improve her blood suagrs and the PCP changed it to pioglitazone 30 mg daily 2 weeks ago, patient did not start on pioglitazone yet. Blood glucose level is 172 HbA1c level is 7.4 Hyperglycemia/hypoglycemia protocol Suspicion of cholelithiasis AST, ALT are normal, mildly elevated ALP of 119 Lipase is normal Follow up on ultrasound abdomen WBC 14.9 one dose of ceftriaxone ordered and we will follow sed rate and procalcitonin levels Hyperlipidemia Follow up on lipid panel Continue home medication rosuvastatin 20 mg p.o. daily Hypothyroidism Follow up on TSH Continue home medication levothyroxine 50 mcg p.o. daily Code status: Full code DVT prophylaxis : Heparin GI prophylaxis: IV Protonix Nutrition: Heart healthy diet Physical therapy: ordered Line/tube: PIV Analgesia/sedation: Morphine Patient's current condition is guarded we will continue to follow patient in AM . Date of Service: Jun 12, 2025 Billing Provider: GASTON AQUINO MD Common Visit Codes: [id number] INP/OBS CARE(HIGH) GASTON AQUINO MD Jun 12, 2025 18:36
[2025-06-12 20:00] VITALS: RESP 20; O2SAT 94
[2025-06-12] MEDS ORDERED: insulin glargine (Lantus) pen - multi-dose SQ SCH (21:00)
[2025-06-12 22:00] VITALS: BP 146/74; PULSE 76; RESP 16; TEMP 98.1; O2SAT 94
[2025-06-13] VITALS (12 sets, daily range): BP systolic 97–147; BP diastolic 49–85; PULSE 60–94; RESP 14–20; TEMP 97.6–97.8; O2SAT 95–99
[2025-06-13 01:38] LABS: MEAN PLATELET VOLUME 7.1 FL (7.4-10.4); RED CELL DISTRIBUTION WIDTH 12.6 % (11.5-14.5)
[2025-06-13 01:54] LABS: CHOL/HDL RATIO 4.0 (0.00-4.99); CREATININE 0.70 MG/DL (0.40-0.90); LDL CHOLESTEROL 90 MG/DL (50-100); TOTAL CARBON DIOXIDE 27.1 MMOL/L (24-32); eCRCL 59 ML/MIN; eGFR 83 ML/MIN
[2025-06-13] MEDS: MESSAGE TO NURSING IV ONE ×3 (02:35→15:36)
[2025-06-13] MEDS ORDERED: non-formulary drug (Rosuvastatin Calcium* (Crestor*) 20 MG) PO SCH (08:00)
[2025-06-13] MEDS: regadenoson 0.4mg/5ml syringe IV PRN (09:11)
--- NOTE | 2025-06-13 10:33 | RADIOLOGY REPORT ---
HISTORY: CP TECHNIQUE: At peak stress, 34 mCi of sestamibi was administered intravenously. Soon thereafter, gated SPECT imaging of the heart was performed with the patient in the supine position. At rest, 8.4 mCi of sestamibi was administered intravenously. Soon thereafter, gated SPECT imaging of the heart was performed with the patient in the supine position. FINDINGS: The left ventricular myocardium demonstrates uniform radiotracer distribution, without perfusion defect. The left ventricular cavity is normal in size. Calculated LVEF is 71 %. No segmental wall motion abnormality. IMPRESSION: NORMAL MYOCARDIAL PERFUSION EXAM. LVEF 71 %.
[2025-06-13] MEDS ORDERED: NICO-631 TD (13:43)
--- NOTE | 2025-06-13 21:10 | DISCHARGE SUMMARY ---
Discharge Summary Providers to CC ~ Discharge Summary Admission Diagnosis: hypertensive urgency Hospital Course DATE OF ADMISSION: 06/12/25 DATE OF DISCHARGE:06/13/25 PATIENT VERY EAGER TO GO HOME CBC done on June 13, 2025 WBC 6.7 hemoglobin 12.8 hematocrit 36.5 sed rate 17. CMP done on June 13, 2025 sodium 139 potassium 4.1 creatinine 0.70 GFR 83 . Hemoglobin A1c 7.4, normal liver enzymes lipid panel showing triglyceride 224 rest of the lipid panel unremarkable. NM LV SCANIMPRESSION: NORMAL MYOCARDIAL PERFUSION EXAM. LVEF 71 %. ECHOCARDIOGRAMConclusion Overall LVEF is 65-70%. Normal LV size and wall thickness. Overall systolic function is normal. RV is normal size and function. Trileaflet AV appears mildly sclerotic without stenosis or insufficiency by color and spectral flow Doppler. Mild MV annular calcification without stenosis. Mild regurgitation by color and spectral flow Doppler. TV appears structurally normal with trace regurgitation by color and spectral flow Doppler. Normal PV without stenosis, physiologic insufficiency by color and spectral flow Doppler. Normal pericardium. No effusion. CHEST,SINGLE VIEWFINDINGS/IMPRESSION: Mild prominence of the interstitial markings. The cardiomediastinal silhouette is unremarkable. No pleural effusion or pneumothorax. No acute osseous abnormality. ULTRASOUND OF ABDOMENIMPRESSION: 1. Right hydronephrosis. No obstructing stone. 2. Hepatic steatosis. 3. No gallstones or acute cholecystitis. Discharge Diagnosis\\Comment: Elevated troponin likely type 2 ND Hypertensive urgency, resolved Type 2 diabetes mellitus, NIDDM Suspicion of cholelithiasis Hyperlipidemia Hypothyroidism Operations\\Procedures: None Consultants: Dr. Killian Zapata Complications: None Condition on DC: Stable New Medications: Nicotine 14 MG Patch* (Habitrol 14 MG Patch*) 1 Each Patch.td24 1 PATCH TD DAILY for 30 Days, #30 PATCH Continued Medications: Albuterol Sulfate (Ventolin Hfa) 90 Mcg Hfa.aer.ad 2 PUFF PO Q6H PRN for SOB or wheezing Azelastine HCl (Azelastine HCl) 6 Ml Drops Budesonide/Formoterol Fumarate (Symbicort 160-4.5 Mcg Inhaler) 10.2 Gm Hfa.aer.ad Levothyroxine Sodium (Synthroid) 50 Mcg Tablet 1 TAB PO DAILY Metoprolol Succinate (Metoprolol Succinate) 25 Mg Tab.sr.24h 1 TAB PO DAILY Pioglitazone Hcl (Pioglitazone Hcl) 30 Mg Tablet 1 TAB PO DAILY Rosuvastatin Calcium* (Crestor*) 20 Mg Tablet 20 MG PO DAILY Discontinued Medications: Levothyroxine Sodium* (Synthroid*) 25 Mcg Tablet 25 MCG PO DAILY Discharge Summary: As per admitting provider's history and physical note " A 70 years old female with history of hypertension, diabetes, hyperlipidemia, hypothyroidism came to the ED with chief complaint of chest pain. Patient states that she was doing well, had a dinner and went to bed for sleep, after sometime, she has having chest pain all over the chest region which is dull aching, with intensity of 7/10, radiating to left side of the jaw, upper abdomen and to the lower back region. She did not take any medication at home and she was brought to the hospital by her . Patient has history of occasional pain in upper abdomen and she underwent ultrasound abdomen on 06/10/25 in view of suspicion of gallbladder and she did not get the report yet. Patient has similar kind of episode in the past x 7-8 yrs ago underwent stress test which was negative. Patient denies any difficulty in breathing, palpitations, orthopnea, PND, swelling of legs, lightheadedness, syncope, falls, nausea, vomiting, diarrhea, constipation, fever and chills." During hospitalization patient was treated Elevated troponin likely type 2 ND Hypertensive urgency -Blood pressure on admission is 214/105 , patient received 1 dose of IV hydralazine 10 mg and IV famotidine 20 mg, developed itching and mild rash, IV Benadryl was given. -EKG shows normal sinus rhythm with heart rate of 84 -Serial troponins are 6-38-71 -Patient states that she was diagnosed with hypertension x 1 year ago and she was on losartan which does not improve her blood pressure and the PCP changed it to metoprolol succinate 25 mg p.o. daily 2 weeks ago. -blood pressures at home from last 2 weeks are in between 140/4 to 168/95 -echocardiogram today left ventricular ejection fraction 65-70% overall systolic function is normal. Normal left ventricular size and wall thickness. -pain management with morphine and SL nitroglycerin p.r.n. -continue home medication metoprolol succinate 25 mg p.o. daily(titrate as needed) -aspirin 325 mg once dose was given and started on aspirin 81 mg once daily, atorvastatin 80 mg once daily - on heparin drip as per protocol Cardiology consultation done by Cardiology team for Dr. Long Zapata recommended stress testing. Testing done on June 13, 2025 was unremarkable NORMAL MYOCARDIAL PERFUSION EXAM. Type 2 diabetes mellitus, NIDDM Patient stated that she was diagnosed with DM x 1 year ago and she was on Metformin which does not improve her blood suagrs and the PCP changed it to pioglitazone 30 mg daily 2 weeks ago, patient did not start on pioglitazone yet. Blood glucose level is 172 HbA1c level is 7.4 Hyperglycemia/hypoglycemia protocol Suspicion of cholelithiasis AST, ALT are normal, mildly elevated ALP of 119 Lipase is normal Follow up on ultrasound abdomen WBC 14.9 one dose of ceftriaxone ordered and we will follow sed rate and procalcitonin levels Hyperlipidemia Follow up on lipid panel Continue home medication rosuvastatin 20 mg p.o. daily Hypothyroidism Follow up on TSH Continue home medication levothyroxine 50 mcg p.o. daily Patient is feeling better she has been afebrile and getting discharged home in stable condition. Patient is seen and examined on the day of discharge. All labs, diagnostic workup and discharge plan discussed with patient and family members in detail before her discharge. All questions and queries answered to the best of my professional medical knowledge. I heard patient's concerns and address appropriately. Patient was cleared by Physical therapy team for home discharge. junior project manager Althea involved in patient's discharge plan. Discharge instructions provided to the patientplease Follow-up with PCP, Dr Long Zapata in outpatient setting in 1-2 weeks. Adjustment of blood pressure medication done during hospital stay. Maintain blood pressure and heart rate log book for 2-3 weeks and follow-up with the primary care physician/ graphic design specialist for hypertension. Amlodipine 5 mg recommended by Cardiology team please discuss with PCP in outpatient setting. Read the side effects of all your medications. General-patient not in any acute distress, alert awake oriented, obese, age appropriate HEENT-atraumatic normocephalic, neck supple without elevated JVD, no thyromegaly or carotid bruit. No lymphadenopathy bilaterally. Eyes-no icterus or pallor seen in eyes Chest-clear to auscultation bilaterally, breathing nonlabored no tachypnea, no wheezing, no crepitation, no crackles. Heart-S1-S2 normal, regular heart rate no murmur Abdomen bowel sounds positive on auscultation, soft nondistended nontender no guarding, no rigidity Skin no active skin rash Neurology-grossly intact, nonfocal alert awake oriented Extremity- no pedal edema able to move all 4 extremities Psychiatry - patient is not confused or agitated cooperated during physical examination *Problems/Diagnosis: (1) Uncontrolled hypertension Status: Acute Total Time Spent on D/C: > 30 Minutes Date of Service: Jun 13, 2025 Billing Provider: GASTON AQUINO MD Common Visit Codes: [id number] DISCH DAY >30min GASTON AQUINO MD Jun 13, 2025 21:05
== END 2025-06-13 15:43 | disposition home or self-care (01) | DRG 282 ==
LOC: ER 00:09 → ED HOLD 02:02 → ORTHO 4S 04:50
PROVIDERS: ADMIT Internal Medicine; ATTEND Internal Medicine
PROC: 4A02XM4 Measurement of Cardiac Total Activity, External Approach (ICD-10-PCS; principal; 2025-06-13)
PROC: 3E033HZ Introduction of Radioactive Substance into Peripheral Vein, Percutaneous Approach (ICD-10-PCS; 2025-06-13)
DX: I16.0 Hypertensive urgency (principal); I21.A1 Myocardial infarction type 2; E11.9 Type 2 diabetes mellitus without complications; E03.9 Hypothyroidism, unspecified; I10 Essential (primary) hypertension; E78.00 Pure hypercholesterolemia, unspecified; K80.20 Calculus of gallbladder without cholecystitis without obstruction; Z90.710 Acquired absence of both cervix and uterus; Z88.2 Allergy status to sulfonamides; Z88.0 Allergy status to penicillin; Z88.8 Allergy status to other drugs, medicaments and biological substances; Z79.899 Other long term (current) drug therapy; Z87.891 Personal history of nicotine dependence; Z79.84 Long term (current) use of oral hypoglycemic drugs
CPT/HCPCS: 36415; 71045; 76700; 78452; 80053; 80061; 80305; 82948; 83036; 83690; 83735; 83880; 84100; 84145; 84443; 84484; 85025; 85610; 85651; 85730; 87081; 93005; 93017; 93306; 94760; 96365; 96375; 99285; A9500; G0378; J0360; J0696; J1200; J1644; J1815; J2470; J2785; J3490